=== PATIENT | female | born 2000 | race Caucasian/White ===

== ENCOUNTER 2024-02-10 00:30 | Emergency (ER) | payer OTHER ==
[~2024-02-10] VITALS: Ht 160 cm; Wt 62.6 kg
[2024-02-10 00:40] VITALS: BP 125/77; PULSE 76; RESP 18; TEMP 97.8; O2SAT 100
[2024-02-10 01:19] LABS: APPEARANCE,URINE CLEAR (CLEAR); BILIRUBIN,URINE NEGATIVE (NEGATIVE); BLOOD, URINE NEGATIVE (NEGATIVE); COLOR,URINE YELLOW (YELLOW); LEUKOCYTE ESTERASE ,URINE NEGATIVE (NEGATIVE); NITRITE, URINE NEGATIVE (NEGATIVE); PROTEIN,URINE NEGATIVE (NEGATIVE); UGLUCOSE NEGATIVE (NEGATIVE); UROBILINOGEN,URINE 0.2 EU/dL (0.2 - 1)
[2024-02-10 01:41] VITALS: BP 101/77; PULSE 70; RESP 18; TEMP 97.8; O2SAT 100
== END 2024-02-10 01:41 | disposition home or self-care (01) ==
LOC: MED 00:30
DX: R51.9 Headache, unspecified (principal); R53.83 Other fatigue
CPT/HCPCS: 81003; 99283